=== PATIENT | male | born 1980 | race African-American/Black ===

== ENCOUNTER 2016-05-15 00:58 | Emergency (ER) | payer OTHER ==
[~2016-05-15] VITALS: Ht 172.7 cm; Wt 101.6 kg
[~2016-05-15 00:58] MED LIST: CARISOPRODOL350 MG PO; DOXYCYCLINE HY100 M3 PO; FLEXERIL10 MG PO; IBUPROFEN800 MG PO; NAPROSYN500 MG PO; NAPROXEN500 MG PO; NOHOMEMEDS; OXYCODONE HCL30 MG PO; PROVENTIL HFA6.7 GM IH; VENTOLIN HFA18 GM IH
[2016-05-15 01:29] LABS: HEMATOCRIT 36.5 % (38.0-50.0); MCH 26.3 PG (29.0-34.0); MCHC 32.3 G/DL (30.0-36.0); MCV 81.5 FL (86-99); MEAN PLAT.VOLUME 10.1 uM^3 (9.0-12.4); PLATELET COUNT 236 K/uL (156-360); RBC DIS.WIDTH-CV 13.8 % (11.8-14.6); RBC DIS.WIDTH-SD 39.9 % (39-53); RED BLOOD COUNT 4.48 M/uL (4.00-5.50); WHITE BLOOD COUNT 5.5 K/uL (4.1-10.2)
[2016-05-15 01:40] LABS: CHLORIDE 105 mEq/L (99-109); POTASSIUM 3.7 mEq/L (3.7-5.4); SODIUM 137 mEq/L (136-147)
[2016-05-15 01:41] LABS: GLUCOSE 190 mg/dL (70-99)
[2016-05-15 01:43] LABS: ANION GAP 12 MEQ/L (2-14); D-DIMER ELISA < 0.15 mg/L FEU (< 0.57)
[2016-05-15 01:45] LABS: GFR ESTIMATE (CALCULATED) > 59 mL/min/
[2016-05-15 01:46] LABS: UREA NITROGEN (BUN) 16 mg/dL (9-23)
[2016-05-15 02:30] LABS: TROP-I INTERPRETATION NEGATIVE; TROPONIN-I < 0.01 ng/mL (0.0-0.30)
[2016-05-15 02:44] VITALS: BP 130/79
== END 2016-05-15 02:56 | disposition home or self-care (01) ==
LOC: EME 00:58
PROVIDERS: Emergency Medicine
DX: R00.2 Palpitations (principal); R06.00 Dyspnea, unspecified; R73.9 Hyperglycemia, unspecified; Z87.891 Personal history of nicotine dependence
CPT/HCPCS: 71020; 80048; 84484; 85027; 85379; 93005

== ENCOUNTER 2016-06-26 01:44 | Emergency (ER) | payer OTHER ==
[~2016-06-26] VITALS: Ht 170.2 cm; Wt 100.1 kg
[2016-06-26] MEDS ORDERED: BACTRIM,SEPT1 TABLET PO (01:56)
[2016-06-26] MEDS ORDERED: FLONASE16 G1 BOTH NARES (01:57)
[2016-06-26 02:14] VITALS: BP 143/90
== END 2016-06-26 02:15 | disposition home or self-care (01) ==
LOC: EME 01:44
DX: S00.31XA Abrasion of nose, initial encounter (principal); L08.9 Local infection of the skin and subcutaneous tissue, unspecified; X58.XXXA Exposure to other specified factors, initial encounter; Y93.E9 Activity, other interior property and clothing maintenance; Y92.008 Other place in unspecified non-institutional (private) residence as the place of occurrence of the external cause; J30.89 Other allergic rhinitis; Z77.120 Contact with and (suspected) exposure to mold (toxic)
CPT/HCPCS: 99281; 99283

== ENCOUNTER 2016-10-29 14:58 | Emergency (ER) | payer OTHER ==
[~2016-10-29] VITALS: Ht 167.6 cm; Wt 97.2 kg
[~2016-10-29 14:58] MED LIST changes: +BACTRIM,SEPT1 TABLET PO; +FLONASE16 G1 BOTH NARES
[2016-10-29 16:01] LABS: HEMATOCRIT 36.2 % (38.0-50.0); MCH 25.9 PG (29.0-34.0); MCHC 31.8 G/DL (30.0-36.0); MCV 81.5 FL (86-99); MEAN PLAT.VOLUME 10.6 uM^3 (9.0-12.4); PLATELET COUNT 231 K/uL (156-360); RBC DIS.WIDTH-CV 13.5 % (11.8-14.6); RBC DIS.WIDTH-SD 39.9 % (39-53); RED BLOOD COUNT 4.44 M/uL (4.00-5.50); WHITE BLOOD COUNT 5.2 K/uL (4.1-10.2)
[2016-10-29 16:16] LABS: CHLORIDE 102 mEq/L (99-109); POTASSIUM 3.3 mEq/L (3.7-5.4); SODIUM 137 mEq/L (136-147)
[2016-10-29 16:17] LABS: GLUCOSE 111 mg/dL (70-99)
[2016-10-29 16:19] LABS: ANION GAP 10 MEQ/L (2-14)
[2016-10-29 16:21] LABS: GFR ESTIMATE (CALCULATED) > 59 mL/min/
[2016-10-29 16:24] LABS: UREA NITROGEN (BUN) 12 mg/dL (9-23)
[2016-10-29 16:28] LABS: TROP-I INTERPRETATION NEGATIVE; TROPONIN-I < 0.01 ng/mL (0.0-0.30)
[2016-10-29 16:35] LABS: TOTAL BILIRUBIN 0.5 mg/dL (0.0-1.0)
[2016-10-29 16:36] LABS: ALKALINE PHOSPHATASE 60 IU/L (3-129)
[2016-10-29 16:39] LABS: DIRECT BILIRUBIN 0.2 mg/dL (0.0-0.3)
[2016-10-29] MEDS ORDERED: ATARAX,VISTARIL25 MG PO (17:36)
[2016-10-29 17:43] VITALS: BP 157/99
== END 2016-10-29 17:44 | disposition home or self-care (01) ==
LOC: EME 14:58
DX: R07.89 Other chest pain (principal); R60.0 Localized edema; F41.9 Anxiety disorder, unspecified; R91.1 Solitary pulmonary nodule
CPT/HCPCS: 71020; 80048; 80076; 84484; 85027; 85379; 93005; 93970; 99281; 99284